=== PATIENT | male | born 1995 | race Caucasian/White ===

== ENCOUNTER 2021-11-11 14:14 | Emergency (ER) | payer SELFPAY ==
[~2021-11-11] VITALS: Ht 175.3 cm; Wt 86.4 kg
[~2021-11-11 14:14] MED LIST: CIPRO 500MG TA500 MG PO; CLEOCIN HC150 MG/CAP PO; FLEXERIL 1010 MG/TAB PO; LORTAB 5/500 501 TAB PO; MOTRIN 200200 MG/TAB PO; NAPROSYN500 MG PO; NO HOME MEDICATIONS; NORCO 325 MG-51 TAB PO; ZOFRAN 4MG T4 MG/TAB PO
[2021-11-11 14:30] VITALS: TEMP 98.3
[2021-11-11] MEDS ORDERED: PREDNISONE20 MG PO (16:48)
[2021-11-11 17:04] VITALS: BP 137/70; PULSE 77
== END 2021-11-11 17:05 | disposition home or self-care (01) ==
LOC: COL.ER 14:14
DX: T14.8XXA Other injury of unspecified body region, initial encounter (principal); Z87.891 Personal history of nicotine dependence; Z28.310 Unvaccinated for COVID-19

== ENCOUNTER 2023-06-13 10:51 | Emergency (ER) | payer SELFPAY ==
[~2023-06-13] VITALS: Ht 177.8 cm; Wt 90.9 kg
[~2023-06-13 10:51] MED LIST changes: +PREDNISONE20 MG PO
[2023-06-13 10:52] VITALS: TEMP 98.4
[2023-06-13 11:15] LABS: BASO # 0.1 K/mm3 (0.0-0.2); BASO % 0.9 % (0.0-2.0); EOS # 0.2 K/mm3 (0.0-0.7); EOS % 2.8 % (0.0-4.0); GRAN # 2.2 K/mm3 (1.4-6.5); GRAN % 41.2 % (42.2-75.2); HEMATOCRIT 42.3 % (42.0-52.0); HEMOGLOBIN 13.9 g/dl (13.5-18.0); LYMPH # 2.4 K/mm3 (1.2-3.4); LYMPH % 45.2 % (20.0-51.0); MEAN CELL VOLUME 91 fl (80.0-100.0); MEAN CORPUSCULAR HEMOGLOBIN 30 pg (27-31); MEAN CORPUSCULAR HGB CONC 33 g/dl (33.0-37.0); MEAN PLATELET VOLUME 10.3 fl (7.4-10.4); MONO # 0.5 K/mm3 (0.1-0.6); MONO % 9.3 % (1.7-9.3); PLATELET COUNT 331 K/mm3 (130-400); RED BLOOD COUNT 4.67 M/mm3 (4.20-5.60); REDCELL DISTRIBUTION WIDTH-CV 13.2 % (11.5-14.5)
[2023-06-13 11:33] LABS: ALBUMIN 4.1 gm/dL (3.5-5.0); BILIRUBIN,TOTAL 0.4 mg/dL (0.2-1.2); C-REACTIVE PROTEIN 0.07 mg/dL (0.00-0.50); CREATININE, serum 1.18 mg/dL (0.72-1.25)
[2023-06-13 11:52] LABS: PROLACTIN 66.6 ng/mL (3.46-19.40)
[2023-06-13] MEDS ORDERED: KEPPRA 500MG500 MG PO (12:00)
[2023-06-13 12:25] VITALS: BP 108/49; PULSE 91
== END 2023-06-13 12:25 | disposition home or self-care (01) ==
LOC: COL.ER 10:51
PROVIDERS: Family Medicine
DX: G40.909 Epilepsy, unspecified, not intractable, without status epilepticus (principal)
CPT/HCPCS: J1953; J7030